=== PATIENT | male | born 1975 | race Caucasian/White ===

== ENCOUNTER 2016-08-05 14:19 | Outpatient (CLI) ==
--- NOTE | 2016-08-05 15:07 | US ---
EXAM: Right lower extremity venous Doppler History: Right leg pain. Technique: Multiple sonographic images through the right lower extremity were obtained. Color dupl ex Doppler was used to interrogate vascular flow. Findings: The right common femoral, greater saphenous, profunda, superficial femoral, popliteal, pe roneal, posterior tibial and anterior tibial veins demonstrate spontaneous flow with normal compress ion and normal augmentation. Impression: No sonographic evidence for deep venous thrombosis.
== END 2016-08-05 14:20 | disposition home or self-care (01) ==
LOC: RAD 14:19
PROVIDERS: ATTEND Family Medicine
DX: S80.11XA Contusion of right lower leg, initial encounter (principal); M79.604 Pain in right leg